=== PATIENT | male | born 1960 | race Caucasian/White ===

== ENCOUNTER 2023-03-13 12:00 | Outpatient (RCR) | payer OTHER, SELFPAY ==
--- NOTE | 2023-02-10 13:55 | URNOTE ---
Per Robert at [facility], Prior authorization is not required for Degarelix ([id number]). Call ref #[id number]
[2023-02-12 14:15] VITALS: BP 121/73; PULSE 53; RESP 16; TEMP 36.3; O2SAT 98
--- NOTE | 2023-02-17 11:31 | ONC.NURNOTE ---
Dx: Prostate cancer
[2023-03-12 12:01] LABS: Basophils Percent Auto 0.3 % (0.0-3.0); Eosinophils Percent Auto 6.5 % (0.0-7.0); Hematocrit 37.1 % (37.0-53.0); Hemoglobin* 13.1 gm/dL (13.5-17.5); Immature Granulocytes Pct Auto 0.3 %; Lymphocytes Percent Auto 7.2 % (20-44); Mean Corpuscular HGB Conc 35 gm/dL (32-36); Mean Corpuscular Hemoglobin 33 pg (26-34); Mean Corpuscular Volume 93 fL (80-100); Monocytes Percent Auto 11.3 % (0.0-11.0); Neutrophils Percent Auto 74.4 % (42.0-72.0); Platelet Count* 139 K/uL (140-440); RDW Coefficient of Variation % 12.4 % (11.5-15.5); White Blood Count* 2.91 K/uL (4.50-11.00)
[2023-03-12 12:04] LABS: Slide Review Reflex No
[2023-03-12 12:29] LABS: Albumin* 4.2 g/dL (3.3-5.0)
[2023-03-12 12:30] LABS: Chloride* 103 mmol/L (96-114); Potassium* 3.6 mmol/L (3.6-5.1); Sodium* 138 mmol/L (135-149)
[2023-03-12 12:32] LABS: Bilirubin Total* 0.6 mg/dL (0.1-1.5); Carbon Dioxide* 26 mmol/L (20-32); Creatinine* 0.6 mg/dL (0.5-1.5); Est. Creatinine Clearance* 81.91; Estimated Glomerular Filt Rate 108 ml/min
[2023-03-12 12:33] LABS: Alanine Aminotransferase* 29 U/L (4-50); Alkaline Phosphatase* 53 U/L (40-150); Aspartate Amino Transferase* 31 U/L (12-35); Blood Urea Nitrogen* 16 mg/dL (7-30); Calcium* 8.7 mg/dL (8.4-10.6); Glucose* 106 mg/dL (60-115)
[2023-03-13] MEDS: DEGARELIX ACETATE 80 MG INJ SUBCUT (13:05)
--- NOTE | 2023-03-14 13:10 | URNOTE ---
Request received for authorization for?Lupron/Eliquard (Leuprolide Acetate) ([id number]). Prior authorization is not required per Marilee Russell at [facility], Ref #[id number].
--- NOTE | 2023-04-08 12:40 | ONC.NURNOTE ---
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 Burrell and was getting his lupron through [facility], his follow up appointment on 03/17/2023 was cancelled.
== END 2023-08-11 23:59 | disposition home or self-care (01) ==
LOC: CCIC 12:00
PROVIDERS: Nurse Practitioner; Visit Provider Physician Assistant
DX: C61 Malignant neoplasm of prostate (principal)
CPT/HCPCS: 36415; 77080; 80053; 80076; 85025; 96401; 99202; 99205; 99215; J9155